=== PATIENT | male | born 1975 | race Two or more races ===

== ENCOUNTER 2024-12-07 17:28 | Emergency (ER) | payer MEDICAID, SELFPAY ==
[2024-12-07 17:52] VITALS: BP 183/109; BP 212/122; PULSE 105; RESP 19; TEMP 36.7; O2SAT 99; BMI 27.3
--- NOTE | 2024-12-07 18:02 | XR_ITS ---
Examination: CT brain head without contrast. 2-D sagittal coronal reconstructions Date and time of exam:December 07, 2024, 1852 hours INDICATIONS: Headaches beginning 3 days ago. CTDI: vol (mGy):55.7. DLP: (mGycm):1193. Technique: Multiple CT axial sections of the brain have been obtained, 5 mm slice thickness. Contrast has not been administered. 2-D sagittal, coronal reconstructions have been obtained Low dose protocols were performed. One or more of the following dose reduction techniques were used; automated exposure control, adjustment of the mA and/or KV according to patient size, use of iterative reconstruction technique. Findings: No significant ventricular enlargement. Intra-axial or extra-axial hemorrhage density is not seen. No mass effect or midline shift Basal cisterns are not remarkable. Fourth ventricle is midline. Cranial vault intact. Mild chronic sphenoid sinusitis Impression: Negative for acute hemorrhage, mass effect or midline shift
--- NOTE | 2024-12-07 18:02 | PD.EDRME ---
Rapid Medical Screening Exam RME Arrival date/time: 12/07/24 17:28 49-year-old male presents emergency room today complains of headache x 2 days Chief Complaint: Headache Time Seen by Provider: 12/07/24 17:55 Vital signs: Vital Signs Temperature 98.0 F 12/07/24 17:52 Pulse Rate 105 H 12/07/24 17:52 Respiratory Rate 19 12/07/24 17:52 Blood Pressure 212/122 H 12/07/24 17:52 Pulse Oximetry (%) 99 12/07/24 17:52 Oxygen Delivery Method Room Air 12/07/24 17:52
[2024-12-07 18:18] LABS: Basophils # (Auto) 0.1 Thou/mm3 (0.0-0.2); Basophils % (Auto) 1 % (0-2.5); Eosinophils # (Auto) 0.0 Thou/mm3 (0.0-0.5); Eosinophils % (Auto) 0 % (0-10); Hematocrit 44.4 % (41.0-53.0); Hemoglobin 15.0 g/dL (13.5-16.0); Immature Granulocytes Auto 0.03 Thou/mm3 (0.00-0.00); Lymphocytes # (Auto) 2.3 Thou/mm3 (1.0-4.8); Lymphocytes % (Auto) 22 % (10-50); Mean Corpuscular HGB Conc 33.8 g/dl (31.0-37.0); Mean Corpuscular Hemoglobin 29.9 pg (25.0-35.0); Mean Corpuscular Volume 88 fL (80-100); Monocytes # (Auto) 0.9 Thou/mm3 (0.0-0.8); Monocytes % (Auto) 8 % (0-12); Neutrophils # (Auto) 7.2 Thou/mm3 (1.8-7.7); Neutrophils % (Auto) 68 % (37-80); Nucleated Red Blood Cell # 0.00 Thou/mm3 (0.00-0.00); Nucleated Red Blood Cell % 0 /100 WBC (0); Platelet Count 313 Thou/mm3 (140-440); RDW Standard Deviation 45.1 fL (35.1-43.9); Red Blood Count 5.02 Miln/mm3 (4.50-5.90); White Blood Count 10.5 Thou/mm3 (3.8-10.6)
[2024-12-07 19:29] VITALS: BP 212/122; PULSE 105
[2024-12-07] MEDS: HYDROcodone/APAP 5/325 TABLET 1 TAB PO (19:29)
[2024-12-07 20:00] LABS: Alanine Aminotransferase 25 U/L (10-49); Albumin, Serum 4.8 gm/dL (3.5-5.0); Albumin/Globulin Ratio 1.7 (1.2-2.2); Alkaline Phosphatase 58 U/L (46-116); Anion Gap 13 (7-16); Aspartate Amino Transferase 36 U/L (0-34); BUN/Creatinine Ratio 10 Ratio (12-20); Bilirubin,Total 0.7 mg/dL (0.3-1.2); Blood Urea Nitrogen 10 mg/dL (9-23); Calcium 9.8 mg/dL (8.3-10.6); Calcium (Corrected) 9.8 mg/dL (8.5-10.1); Carbon Dioxide 25.0 mMol/L (20.0-31.0); Chloride 103 mMol/L (98-107); Creatinine (Component) 1.0 mg/dL (0.6-1.3); Estimated Creatinine Clearance 92.2 mL/min (>60); Globulin 2.9 gm/dL (2.3-3.5); Glucose 170 mg/dL (74-106); Osmolality,Calculated 284 (275-295); Potassium 3.8 mMol/L (3.4-5.1); Sodium 141 mMol/L (136-145); Total Protein 7.7 gm/dL (5.7-8.2); eGFR > 60 See Note
[2024-12-07 20:44] VITALS: BP 174/98; BP 175/100; PULSE 97; RESP 18; TEMP 36.7; O2SAT 96
--- NOTE | 2024-12-07 21:10 | EDNOTE_ITS ---
ED General RME/HPI General Chief complaint: Headache Stated complaint: High blood pressure, STILES X 2 days Time Seen by Provider: 12/07/24 17:55 Arrival date/time: 12/07/24 17:28 RME / HPI RME / HPI narrative: 49-year-old male presents emergency room today complains of headache x 2 days, described as dull ache, severity mild. Patient went to PCP today and was noted to have elevated blood pressure. Patient is currently not taking any blood pressure medication. Patient denies any chest pain. Patient is ambulatory. Denies any head trauma or fall denies any fever. Related Data Previous Rx's ?Medication ?Instructions ?Recorded amlodipine 5 mg tablet (Norvasc) 5 mg PO QDAY #30 tabs 12/07/24 lisinopril 10 mg tablet 10 mg PO QDAY #30 tabs 12/07 Allergies Allergy/AdvReac Type Severity Reaction Status Date / Time No Known Drug Allergies Allergy Verified 12/07/24 17:33 Review of Systems Review of Systems Narrative Review of Systems: Review of system reviewed and within normal limits except mentioned in HPI ED Exam Narrative Physical exam: VITAL SIGNS: Reviewed. GENERAL APPEARANCE: Alert and interactive, follows commands, no acute distress, HEAD AND FACE: Non-traumatic. ENT: PERRL, pink conjunctivitis, eyelid no trauma, Mucous membrane moist. NECK: Supple, nontender, no nuchal rigidity. CHEST: No tenderness, no crepitus, no paradoxical movement, no retractions. LUNGS: Clear, well ventilated, symmetric, no rales, no wheezing, no ronchi, no stridor, good breath sounds bilaterally. HEART: Regular rate, regular rhythm, no murmur, no gallops. ABDOMEN: Soft, positive bowel sounds, nondistended, no guarding, nontender, no rebound, no masses, RECTAL: Deferred. GENITAL: Deferred. NEUROLOGICAL: Gross motor function intact sensory function intact, Appropriate for age. MUSCULOSKELETAL: low back nontender, full range of motion. EXTREMITIES: Nontender, full range of motion. SKIN: Color pink, dry, no rash, no lacerations, no abrasions, no contusions. LYMPHATICS: Deferred. Course Quality Measures none Orders Category Date Time Status CT head/brain wo con Stat Exams 12/07/24 18:02 Completed CBC Stat Lab 12/07/24 18:09 Completed CMP [Comprehensive Metabolic Panel] Stat Lab 12/07/24 18:09 Completed HYDROcodone*/APAP 5/325 [[place] 5/325] Med 12/07/24 18:02 Discontinued 1 tab PO X1 ONE cloNIDine HCL [Catapres] Med 12/07/24 18:02 Discontinued 0.1 mg PO X1 ONE Vital Signs Vital signs: Vital Signs Temperature 98.0 F 12/07/24 17:52 Pulse Rate 105 H 12/07/24 17:52 Respiratory Rate 19 12/07/24 17:52 Blood Pressure 212/122 H 12/07/24 17:52 Pulse Oximetry (%) 99 12/07/24 17:52 Oxygen Delivery Method Room Air 12/07/24 17:52 Discharge Plan Plan Patient Disposition: HOME (Self Care) Discharge Disposition comment: stable Prescriptions/Referrals Prescriptions/Med Rec: New lisinopril 10 mg tablet 10 mg PO QDAY Qty: 30 0RF amlodipine [Norvasc] 5 mg tablet 5 mg PO QDAY Qty: 30 0RF Referrals: No Primary/Family,Physician [Primary Care Provider] - In 1 week Problem List Clinical Impression: Hypertension Patient/Caregiver Discharge Instructions Discharge Activity: activity as tolerated Education Materials: ED Hypertension, New (Begin Treatment) Additional Instructions: Thank you for the opportunity for serving you today. You are stable for discharged . You are advised to: Follow-up with your PCP in 1 to 2 days Return to ED for worsening of symptoms Increase oral fluids Take medication as prescribed Print Language: Guamanian Stand Alone Forms: Nette Award Info., Patient Portal Info Letter PA/RAFAELA Supervising Physician JOJO/RAFAELA Supervising Physician: MD Tung [facility] Narrative MDM hospital course: 49-year-old male presents emergency room today complains of headache x 2 days, described as dull ache, severity mild. Patient went to PCP today and was noted to have elevated blood pressure. Patient is currently not taking any blood pressure medication. Patient denies any chest pain. Patient is ambulatory. Denies any head trauma or fall denies any fever. Patient's laboratory workup all came back unremarkable. Creatinine is normal. CT scan of the head came back unremarkable. Patient was given clonidine, and blood pressure was noted to be 175/98 prior to discharge. Patient is not have any symptoms. Patient was sent home on blood pressure medication. Patient appears nontoxic and hemodynamically stable .Decision to discharge the patient. The patient/family was given an opportunity to ask questions and understood their discharge instructions. Discharge instructions specifically included follow up provider and time frame, current and/or new medications and possible side effects, indications for sooner follow up or return to the emergency department, and the expected course of current diagnosis. Patient reports feeling better as well and giving evidence of significant clinical improvement, I believe patient is now a candidate for discharge. Medication Administration(s) Medication Administration History Discontinued Medications Hydrocodone Bitart/Acetaminophen (Hydrocodone/Apap 5/325 Tablet) 1 tab PO X1 ONE Stop: 12/07/24 18:03 Last Admin: 12/07/24 19:29 Dose: 1 tab Documented By: Clonidine (Clonidine Hcl 0.1 Mg Tablet) 0.1 mg PO X1 ONE Stop: 12/07/24 18:03 Last Admin: 12/07/24 19:29 Dose: 0.1 mg Documented By: Diagnosis Differential diagnosis: Headache, neck pain, hypertension new treatment Most likely dx, and/or detailed dx discussion: Headache, hypertension new treatment
== END 2024-12-07 21:27 | disposition home or self-care (01) ==
PROVIDERS: Nurse Practitioner Primary Care; Emergency Provider Emergency Medicine
DX: R51.9 Headache, unspecified (principal); I10 Essential (primary) hypertension
CPT/HCPCS: 36415; 70450; 80053; 85025; 99283; A9270